=== PATIENT | male | born 1955 | race Caucasian/White ===

== ENCOUNTER → 2017-01-30 | Outpatient (CLI) | payer OTHER ==
[~2017-01-30] MED LIST: OMEPRAZOLE20 MG PO
[2017-01-30 16:19] LABS: BUN 18 mg/dL (7-18)
[2017-01-30 16:24] LABS: GFR (ESTIMATED) 98 ML/MIN (>60)
== END ==
LOC: LAB 14:24
PROVIDERS: Surgery
DX: R19.00 Intra-abdominal and pelvic swelling, mass and lump, unspecified site (principal); D17.9 Benign lipomatous neoplasm, unspecified; Z01.812 Encounter for preprocedural laboratory examination

== ENCOUNTER → 2017-02-04 | Outpatient (CLI) | payer OTHER ==
--- NOTE | 2017-02-05 08:10 | RADIOLOGY REPORT PS360 ---
CT ABD PELVIS W/ CONTRAST CLINICAL INDICATION: ABDOMINAL WALL BULGE ORDERING PHYSICIAN: JIMY HEDRICK MD PATIENT AGE: 62 years COMPARISON: None TECHNIQUE: Axial images obtained with sagittal and coronal reformats. PROCEDURE: Oral Contrast: Redicat IV Contrast: 75 mL's of Isovue-370. FINDINGS: Centrilobular emphysematous changes are present in the lung bases. There are at least 4 isodense lesions in both lobes of the liver the largest in the lateral segment left hepatic lobe measuring 5 mm. These are nonspecific too small to categorize. No radio opaque gallstones. The spleen, adrenal glands, and pancreas are unremarkable. No renal calculi, renal mass, hydronephrosis, or ureteral calculi evident. Urinary bladder has an unremarkable appearance. No intestinal obstruction or free air. No evidence of appendicitis or diverticulitis. No abdominal wall hernia or diastases. There is some asymmetric prominence of the subcutaneous fat in the right lower abdominal wall toward the midline in the infraumbilical region which may be due to lipoma. There is a small focal area of calcification within the lower abdominal wall anteriorly superior to the symphysis pubis slightly toward the left. No acute bony anomalies IMPRESSION: 1. No evidence of abdominal wall hernia or diastases. 2. There is some asymmetric prominence of the subcutaneous fat in the right lower abdominal wall in the infraumbilical region and could be related to lipomatous involvement. 3. Other nonacute findings as described above.
== END ==
LOC: RAD 08:48
DX: R19.00 Intra-abdominal and pelvic swelling, mass and lump, unspecified site (principal)
CPT/HCPCS: Q9967